=== PATIENT | male | born 1940 | race Hispanic/Latino ===

== ENCOUNTER 2018-12-20 09:58 | Day surgery (SDC) | payer MEDICARE ==
[2018-12-06 11:11] VITALS: BMI 31.6
[2018-12-20] MEDS ORDERED: Morphine 10 mg/5 ml Oral Soln PO PRN (10:26)
[2018-12-20] MEDS ORDERED: Dextrose 5%/0.45% NS 1,000 ML IV SCH (10:30)
[2018-12-20] MEDS ORDERED: Propofol 10 mg/ml Inj (20 ML) ONE (12:29)
[2018-12-20] MEDS ORDERED: Midazolam 2 MG/2 ML VIAL ONE (12:30)
[2018-12-20 15:56] VITALS: RESP 16
[2018-12-20 15:58] VITALS: BP 120/85; PULSE 63; TEMP 97.7; O2SAT 98
--- NOTE | 2018-12-20 23:18 | OP ---
PROCEDURE DATE: 12/20/2018 PREOPERATIVE DIAGNOSIS: Right chronic otitis media. POSTOPERATIVE DIAGNOSIS: Right chronic otitis media. PROCEDURE: Right myringotomy tubes. SIGNIFICANT FINDINGS: Fluid noted behind the right TM. DESCRIPTION OF PROCEDURE: The patient was brought into the room and placed in supine position. Anesthesia was initiated through facemask. The patient was draped in the usual manner. The head was turned. The right ear was brought into view using operative microscope and ear speculum. A radial incision was made in the anterior-inferior quadrant of the ear drum. Fluid was noted behind the TM and suctioned out. Tube was placed. Floxin was placed. The microscope and ear speculum were taken out of position. The patient was taken off anesthesia and taken to the recovery room in a stable manner. Indra Nieves MD
== END 2018-12-20 15:00 | disposition home or self-care (01) ==
LOC: C.SDS 09:58
PROVIDERS: ATTEND Otolaryngology
DX: H66.91 Otitis media, unspecified, right ear (principal); I25.10 Atherosclerotic heart disease of native coronary artery without angina pectoris; I48.91 Unspecified atrial fibrillation; G47.33 Obstructive sleep apnea (adult) (pediatric); J45.909 Unspecified asthma, uncomplicated; M19.90 Unspecified osteoarthritis, unspecified site
CPT/HCPCS: 69436; 82948; J2250; J2704